=== PATIENT | female | born 1975 | race Two or more races ===

== ENCOUNTER → 2017-10-08 | Outpatient (CLI) | payer BC ==
[~2017-10-08] MED LIST: LISI-285 PO; METO25TA5 PO; WARF5TAB PO
[2017-10-09 08:06] LABS: HSV 2 IgG Antibody <0.91 index (0.00-0.90)
[2017-10-09 10:55] LABS: Hepatitis B Surface Antibody Negative
== END | disposition home or self-care (01) ==
LOC: LAB 10:31
PROVIDERS: ATTEND Specialist
DX: Z20.2 Contact with and (suspected) exposure to infections with a predominantly sexual mode of transmission (principal); Z11.3 Encounter for screening for infections with a predominantly sexual mode of transmission; A74.9 Chlamydial infection, unspecified
CPT/HCPCS: 36415; 86592; 86695; 86696; 86704; 86706; 86708; 86803; 87070; 87340

== ENCOUNTER → 2017-10-29 | Outpatient (CLI) | payer BC | END | disposition home or self-care (01) | LOC: LAB 09:04 | PROVIDERS: ATTEND Specialist | DX: N95.9 Unspecified menopausal and perimenopausal disorder (principal) | CPT/HCPCS: 83001; 83002; 84144 ==

== ENCOUNTER 2023-12-25 00:41 | Emergency (ER) | payer BC ==
[~2023-12-25] VITALS: Ht 167.6 cm; Wt 72.8 kg
[2023-12-25] MEDS ORDERED: CYCL-837 PO (04:48)
[2023-12-25] MEDS ORDERED: ACE3T PO (04:48)
[2023-12-25] MEDS: ONDANSETRON ODT 4 MG TAB PO ONE (05:13)
[2023-12-25] MEDS: MORPHINE SULFATE INJ 2 MG/ml SYRG IM ONE (05:15)
[2023-12-25 05:45] VITALS: BP 134/62; PULSE 64; RESP 18; TEMP 98.4
[2023-12-25 06:35] VITALS: O2SAT 100
== END 2023-12-25 07:21 | disposition home or self-care (01) ==
LOC: EDBD 00:41 → ER 00:41
DX: S83.8X1A Sprain of other specified parts of right knee, initial encounter (principal); S16.1XXA Strain of muscle, fascia and tendon at neck level, initial encounter; S29.012A Strain of muscle and tendon of back wall of thorax, initial encounter; S39.012A Strain of muscle, fascia and tendon of lower back, initial encounter; R51.9 Headache, unspecified; I10 Essential (primary) hypertension; Z86.73 Personal history of transient ischemic attack (TIA), and cerebral infarction without residual deficits; Z98.890 Other specified postprocedural states; Z79.899 Other long term (current) drug therapy; V89.2XXA Person injured in unspecified motor-vehicle accident, traffic, initial encounter; Y93.I9 Activity, other involving external motion; Y92.411 Interstate highway as the place of occurrence of the external cause; Y99.8 Other external cause status
CPT/HCPCS: 29505; 70450; 72125; 72128; 72131; 73560; 96372; 99285; J2270; Q0162

== ENCOUNTER 2024-02-09 11:53 | Emergency (ER) | payer BC ==
[~2024-02-09] VITALS: Ht 157.5 cm; Wt 79.7 kg
[~2024-02-09 11:53] MED LIST changes: +ACE3T PO; +CYCL-837 PO
[2024-02-09 12:00] VITALS: TEMP 98.1
[2024-02-09 12:13] VITALS: BP 154/69; PULSE 68; RESP 16; O2SAT 99
[2024-02-09] MEDS ORDERED: IBUP1TAB5 PO (15:09)
[2024-02-09] MEDS ORDERED: MUPI2CRE17 EX (15:09)
[2024-02-09] MEDS ORDERED: CEPH500C PO (15:09)
== END 2024-02-09 15:19 | disposition home or self-care (01) ==
LOC: ER 11:53
DX: L03.012 Cellulitis of left finger (principal); I10 Essential (primary) hypertension; Z86.73 Personal history of transient ischemic attack (TIA), and cerebral infarction without residual deficits; Z90.710 Acquired absence of both cervix and uterus; Z79.899 Other long term (current) drug therapy